=== PATIENT | male | born 1935 | race Caucasian/White ===

== ENCOUNTER 2021-03-30 13:14 | Outpatient (CLI) | payer OTHER ==
[2021-03-31 07:55] LABS: SARS-CoV-2 PCR by NAA Not Detected (NotDetected)
== END 2021-03-30 13:15 | disposition home or self-care (01) ==
LOC: LABBT 13:14
PROVIDERS: ATTEND Family Medicine
DX: Z01.812 Encounter for preprocedural laboratory examination (principal); Z20.822 Contact with and (suspected) exposure to COVID-19
CPT/HCPCS: U0003; U0005

== ENCOUNTER 2021-11-09 11:35 | Observation (INO) | payer MEDICARE, OTHER ==
[2021-11-09 12:27] LABS: #Monocytes 0.7 thou/uL (0.11-0.59); #Neutrophils 3.9 thou/uL (1.40-6.50); %Basophils 0.2 % (0.0-1.0); %Eosinophils 0.8 % (0.0-10.0); %Monocytes 12.4 % (0.0-10.0); %Neutrophils 68.6 % (42.0-75.0); Hemoglobin 12.2 g/dL (14.0-18.0); Mean Corpuscular HGB CONC 33.2 g/dL (32.0-36.0); Mean Corpuscular Hemoglobin 32.2 pg (27.0-31.0); Mean Corpuscular Volume 96.9 fL (78.0-98.0); Mean Platelet Volume 9.9 fL (7.4-10.4); Platelet Count 138 thou/uL (130-400); Red Blood Cell (RBC) Count 3.78 mill/uL (4.70-6.10); White Blood Cell (WBC) Count 5.7 thou/uL (4.8-10.8)
[2021-11-09 12:48] LABS: ALT (SGPT) 14 U/L (8-55); AST (SGOT) 14 U/L (5-34); Alkaline Phosphatase 63 U/L (40-110); Anion Gap 10 mmol/L (10-20); BUN (Urea Nitrogen) 24 mg/dL (8.4-25.7); Bilirubin, Total 0.7 mg/dL (0.2-1.2); Calc. Creatinine Clearance 0 mL/min (70-130); Calcium 9.5 mg/dL (7.8-10.44); Carbon Dioxide 28 mmol/L (23-31); Chloride 102 mmol/L (98-107); Estimated GFR 68; Globulin 2.7 g/dL (2.4-3.5); Glucose 199 mg/dL (83-110); Potassium 4.3 mmol/L (3.5-5.1); Protein, Total 6.7 g/dL (5.8-8.1); Sodium 136 mmol/L (136-145)
[2021-11-09] MEDS ORDERED: Acetaminophen 650 MG Suppository PR PRN (16:12)
[2021-11-09] MEDS ORDERED: Acetaminophen 325 MG TAB PO PRN (16:12)
[2021-11-09] MEDS ORDERED: Dextrose 5% in Water 1,000 ML IV PRN (16:14)
[2021-11-09] MEDS ORDERED: Dextrose 50% Abboject 50 ML SYRINGE SLOW IVP PRN (16:14)
[2021-11-09] MEDS ORDERED: Insulin Regular 300 UNITS/3 ML VIAL SC PRN ×2 (16:14)
[2021-11-09] MEDS ORDERED: Furosemide 40 MG/4 ML VIAL ONE (16:30)
[2021-11-09] MEDS ORDERED: Aspirin Chewable 81 MG TAB ONE (16:30)
[2021-11-09 19:38] LABS: Troponin I Less than 0.010 ng/mL (< 0.028)
[2021-11-09] MEDS ORDERED: hydrALAZINE 20 MG/ML VIAL SLOW IVP PRN (20:14)
[2021-11-09] MEDS ORDERED: guaiFENesin 200 MG TAB PO SCH (21:00)
[2021-11-09] MEDS: Atorvastatin Calcium 10 MG TAB PO SCH ×2 (21:50→21:51)
[2021-11-09] MEDS: guaiFENesin ER 600 MG TAB PO SCH (21:51)
[2021-11-09 22:50] LABS: Troponin I Less than 0.010 ng/mL (< 0.028)
[2021-11-09 23:39] VITALS: BMI 23.0
[2021-11-10 05:30] LABS: Anion Gap 14 mmol/L (10-20); BUN (Urea Nitrogen) 19 mg/dL (8.4-25.7); Calc. Creatinine Clearance 58 mL/min (70-130); Calcium 9.7 mg/dL (7.8-10.44); Carbon Dioxide 27 mmol/L (23-31); Chloride 98 mmol/L (98-107); Estimated GFR 79; Glucose 247 mg/dL (83-110); Potassium 3.7 mmol/L (3.5-5.1); Sodium 135 mmol/L (136-145)
[2021-11-10 06:03] LABS: Band 6 % (5-11); Hemoglobin 13.6 g/dL (14.0-18.0); Lymphocytes 16 % (21-51); MDiff Complete? YES; Mean Corpuscular HGB CONC 33.8 g/dL (32.0-36.0); Mean Corpuscular Hemoglobin 32.4 pg (27.0-31.0); Mean Corpuscular Volume 95.8 fL (78.0-98.0); Mean Platelet Volume 9.5 fL (7.4-10.4); Monocytes 20 % (0-10); Neutrophil 58 % (42-75); Platelet Count 144 thou/uL (130-400); RBC Distribution Width 11.9 % (11.5-14.5); Red Blood Cell (RBC) Count 4.19 mill/uL (4.70-6.10); White Blood Cell (WBC) Count 6.5 thou/uL (4.8-10.8)
[2021-11-10] MEDS ORDERED: metFORMIN 500 MG TAB PO SCH ×3 (08:00→08:45)
[2021-11-10] MEDS ORDERED: Doxazosin 2 MG TAB PO SCH ×2 (09:00→21:00)
[2021-11-10] MEDS: guaiFENesin ER 600 MG TAB PO SCH (09:15)
[2021-11-10 13:00] VITALS: BP 175/82; TEMP 97.9
[2021-11-11] MEDS ORDERED: metFORMIN 500 MG TAB PO SCH (08:00)
== END 2021-11-10 16:20 | disposition home or self-care (01) ==
LOC: ERS 11:35 → ERHOLD 17:18 → 2SW 19:58
PROVIDERS: ADMIT Internal Medicine; ATTEND Internal Medicine
DX: R06.02 Shortness of breath (principal); E78.5 Hyperlipidemia, unspecified; N40.0 Benign prostatic hyperplasia without lower urinary tract symptoms; E11.9 Type 2 diabetes mellitus without complications; I08.3 Combined rheumatic disorders of mitral, aortic and tricuspid valves; I31.3 Pericardial effusion (noninflammatory); Z87.891 Personal history of nicotine dependence; Z79.84 Long term (current) use of oral hypoglycemic drugs; Z79.899 Other long term (current) drug therapy
CPT/HCPCS: 36415; 36416; 71045; 80048; 80053; 83880; 84484; 85025; 93005; 93306; 94640; 96376; G0378; J0360; J1940; J7620